=== PATIENT | male | born 1990 | race Caucasian/White ===

== ENCOUNTER 2018-04-01 06:23 | Emergency (ER) | payer SELFPAY ==
[2018-04-01 07:21] LABS: Absolute Monocytes 0.9 K/uL (0.1-1.3); Absolute Neutrophil 3.5 K/uL (1.8-8.0); Basophils % 0.7 % (0-1.3); Eosinophils % 1.7 % (0-4.4); Hematocrit 49.2 % (39.6-49.0); Lymphocytes % 39.4 % (15.3-44.8); MPV 8.4 fL (7.6-11.3); Monocytes % 11.3 % (3.3-12.3); RBC Red Blood Cell Count 5.81 M/uL (4.33-5.43)
[2018-04-01 07:29] LABS: Barbiturates NEGATIVE (NEGATIVE); Benzodiazepines NEGATIVE (NEGATIVE); Cocaine NEGATIVE (NEGATIVE); METHAMPHETAM NEGATIVE (NEGATIVE); Methadone NEGATIVE (NEGATIVE); Opiates NEGATIVE (NEGATIVE); Phencyclidine NEGATIVE (NEGATIVE); THC Cannibis NEGATIVE (NEGATIVE)
[2018-04-01] MEDS ORDERED: NA CHLORIDE 0.9% 1,000 ML ONE (07:44)
[2018-04-01 08:21] LABS: Urine Blood NEGATIVE (NEG); Urine Glucose NEGATIVE (NEG); Urine Protein NEGATIVE (NEG); Urine pH 5.5 (5.0-7.0)
[2018-04-01 08:26] LABS: BUN Blood Urea Nitrogen 14 mg/dL (7-18); Bicarbonate 26 mmol/L (21-32); Glucose Level 90 mg/dL (74-106); Potassium 3.8 mmol/L (3.5-5.1); Sodium Level 140 mmol/L (136-145)
--- NOTE | 2018-04-01 08:26 | EKG ---
Test Date: 2018-04-01 Test Time: 06:51:07 Commercial Baking Teacher: FRANKLIN MEASUREMENT RESULTS: Intervals: Rate: 90 LA: 156 QRSD: 88 QT: 364 QTc: 445 [place]: P: 67 LA: 156 QRS: 34 T: 52 INTERPRETIVE STATEMENTS: Normal sinus rhythm Normal ECG No previous ECG available for comparison Electronically Signed On 04-01-18 08:26:15 HEAD BONE GRINDER by Bong Rincon
--- NOTE | 2018-04-01 09:31 | ER ---
Nurse's Notes [facility] Name: Siddhartha Mishra Age: 27 yrs Sex: Male : 1990 Arrival Date: 04/01/2018 Time: 06:26 Bed 7 Private MD: Diagnosis: Near-syncope Presentation: 04/01 06:37 Presenting complaint: Patient states: "I was leaving work and I felt like my vision was tl2 going out and I was about to pass out but didn't. I still feel weird and like there is a pressure behind my eyes.". Transition of care: patient was not received from another setting of care. Onset of symptoms was April 01, 2018 at 06:00. Risk Assessment: Do you want to hurt yourself or someone else? Patient reports no desire to harm self or others. Initial Sepsis Screen: Does the patient meet any 2 criteria? No. Patient's initial sepsis screen is negative. Does the patient have a suspected source of infection? No. Patient's initial sepsis screen is negative. Care prior to arrival: None. 06:37 Method Of Arrival: Ambulatory tl2 06:37 Acuity: RAFAELA 3 tl2 Triage Assessment: 06:39 General: Appears in no apparent distress. uncomfortable, Behavior is calm, cooperative, tl2 appropriate for age. Pain: Denies pain. Neuro: Level of Consciousness is awake, alert, obeys commands, Oriented to person, place, time, situation, Reports weakness "feels like he can't focus". Cardiovascular: Denies chest pain. Respiratory: Airway is patent Respiratory effort is even, unlabored, Respiratory pattern is regular, symmetrical. GI: No signs and/or symptoms were reported involving the gastrointestinal system. : No signs and/or symptoms were reported regarding the genitourinary system. Derm: Skin is pink, warm \\T\\ dry. Historical: - Allergies: 06:39 No Known Allergies; tl2 - Home Meds: 06:39 None [Active]; tl2 - PMHx: 06:39 born with one kidney; Hypertension; stomach ulcers; tl2 - PSHx: 06:39 None; tl2 - Immunization history:: Adult Immunizations up to date. - Social history:: Smoking status: Patient uses tobacco products, smokes one-half pack cigarettes per day. - Ebola Screening: : No symptoms or risks identified at this time. Screenin:41 Abuse screen: Denies threats or abuse. Nutritional screening: No deficits noted. tl2 Tuberculosis screening: No symptoms or risk factors identified. Fall Risk None identified. Assessment: 07:49 Reassessment: Patient appears in no apparent distress at this time. Patient and/or sg family updated on plan of care and expected duration. Pain level reassessed. Patient is alert, oriented x 3, equal unlabored respirations, skin warm/dry/pink. Patient states symptoms have not improved. Vital Signs: 06:33 BP 149 / 92; Pulse 96; Resp 18; Temp 98.5(O); Pulse Ox 99% on R/A; Weight 92.08 kg; tl2 Height 5 ft. 11 in. (180.34 cm); Pain 0/10; 06:36 BP 138 / 88 Supine; Pulse 89; lp1 06:38 BP 151 / 97 Sitting; Pulse 99; lp1 06:40 BP 155 / 88 Standing; Pulse 92; lp1 07:48 BP 131 / 90; Pulse 85 MON; Resp 17 S; Pulse Ox 100% on R/A; Pain 0/10; sg 06:33 Body Mass Index 28.31 (92.08 kg, 180.34 cm) tl2 Visual Acuity: 09:22 Left Eye Visual acuity 20/25, Pupil size 4 mm, Normal, Reactive To Accomodation; Right sg Eye Visual acuity 20/25, Pupil size 4 mm, Normal, Reactive To Accomodation; Both Eyes Visual acuity 20/20; Without Lenses; ED Course: 06:26 Patient arrived in ED. es 06:31 Lin Miller FNP-C [facility]. kb 06:31 Robel Corley MD is Attending Physician. kb 06:38 Triage completed. tl2 06:39 Arm band placed on right wrist. tl2 06:[address] vm2 06:41 Patient has correct armband on for positive identification. Bed in low position. Call tl2 light in reach. Side rails up X 1. 06:41 EKG done. tl2 06:47 CT completed. Patient tolerated procedure well. Patient moved back from CT. vm2 06:50 CT Head Brain wo Cont In Process Unspecified. EDMS 06:55 Inserted saline lock: 20 gauge in left antecubital area, using aseptic technique. Blood lp1 collected. 07:06 Ted Win, RN is Primary Nurse. 10:13 No provider procedures requiring assistance completed. IV discontinued, intact, ss bleeding controlled, No redness/swelling at site. Pressure dressing applied. Administered Medications: 07:40 Drug: NS 0.9% 1000 ml Route: IV; Rate: 1000 ml; Site: left antecubital; sg 09:00 Follow up: Response: No adverse reaction; IV Status: Completed infusion; IV Intake: tw2 1000ml Intake: 09:00 IV: 1000ml; Total: 1000ml. tw2 Outcome: 09:30 Discharge ordered by . kb 10:13 Discharged to home ambulatory. ss 10:13 Condition: good 10:13 Discharge instructions given to patient, Instructed on discharge instructions, follow up and referral plans. Demonstrated understanding of instructions, follow-up care. 10:14 Patient left the ED. ss Signatures: Dispatcher [employer] EDLin Haddad, KINDERGARTEN TEACHER-C KINDERGARTEN TEACHER-CkTed Jane, RN RN Anisha Morales Shelby RN RN Li Fisher RN RN lp1 Bonnie Wilhelm RN RN tw2 Genesis Herndon RN RN tl2 Tanya Summers [facility] Corrections: (The following items were deleted from the chart) 06:45 06:39 BP 149 / 92; Pulse 96bpm; Resp 18bpm; Pulse Ox 99% RA; Temp 98.5F Oral; 92.08 kg; tl2 Height 5 ft. 11 in.; BMI: 28.3; Pain 0/10; tl2
--- NOTE | 2018-04-01 09:31 | EDPHYS ---
Physician Documentation [facility] Name: Siddhartha Mishra Age: 27 yrs Sex: Male : 1990 Arrival Date: 04/01/2018 Time: 06:26 Bed 7 Private MD: ED Physician Robel Corley HPI: 04/01 06:38 This 27 yrs old Male presents to ER via Ambulatory with complaints of Near kb Syncope, Doesn't Feel Right. 06:38 The patient has experienced near-syncope, felt faint. Onset: The symptoms/episode kb began/occurred just prior to arrival. Duration: This was a single episode. Context: occurred at work, occurred while the patient was standing, Just prior to the episode the patient experienced no apparent symptoms. Associated injury: The patient did not suffer any apparent associated injury. Associated signs and symptoms: Pertinent positives: lightheadedness, "unable to focus". Current symptoms: Currently, the patient is not experiencing any symptoms, the patient feels back to baseline, no decreased level of consciousness, no confusion, no dysphasia, no headache, no paralysis, no visual changes. The patient has not experienced similar symptoms in the past. The patient has not recently seen a physician. 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 States he just felt unfocused. He no longer feels like he is going to pass out, but still feels "weird." Reports he recently had food poisoning. . Historical: - Allergies: 06:39 No Known Allergies; tl2 - Home Meds: 06:39 None [Active]; tl2 - PMHx: 06:39 born with one kidney; Hypertension; stomach ulcers; tl2 - PSHx: 06:39 None; tl2 - Immunization history:: Adult Immunizations up to date. - Social history:: Smoking status: Patient uses tobacco products, smokes one-half pack cigarettes per day. - Ebola Screening: : No symptoms or risks identified at this time. ROS: 06:45 Constitutional: Negative for fever, chills, and weight loss, ENT: Negative for injury, kb pain, and discharge, Neck: Negative for injury, pain, and swelling, Cardiovascular: Negative for chest pain, palpitations, and edema, Respiratory: Negative for shortness of breath, cough, wheezing, and pleuritic chest pain, Abdomen/GI: Negative for abdominal pain, nausea, vomiting, diarrhea, and constipation, Back: Negative for injury and pain, MS/Extremity: Negative for injury and deformity, Skin: Negative for injury, rash, and discoloration. 06:45 Neuro: Positive for near syncope. Exam: 06:38 Constitutional: This is a well developed, well nourished patient who is awake, alert, kb and in no acute distress. Head/Face: Normocephalic, atraumatic. ENT: Nares patent. No nasal discharge, no septal abnormalities noted. Tympanic membranes are normal and external auditory canals are clear. Oropharynx with no redness, swelling, or masses, exudates, or evidence of obstruction, uvula midline. Mucous membranes moist. Neck: Trachea midline, no thyromegaly or masses palpated, and no cervical lymphadenopathy. Supple, full range of motion without nuchal rigidity, or vertebral point tenderness. No Meningismus. Chest/axilla: Normal chest wall appearance and motion. Nontender with no deformity. No lesions are appreciated. Cardiovascular: Regular rate and rhythm with a normal S1 and S2. No gallops, murmurs, or rubs. Normal PMI, no JVD. No pulse deficits. Respiratory: Lungs have equal breath sounds bilaterally, clear to auscultation and percussion. No rales, rhonchi or wheezes noted. No increased work of breathing, no retractions or nasal flaring. Abdomen/GI: Soft, non-tender, with normal bowel sounds. No distension or tympany. No guarding or rebound. No evidence of tenderness throughout. Skin: Warm, dry with normal turgor. Normal color with no rashes, no lesions, and no evidence of cellulitis. MS/ Extremity: Pulses equal, no cyanosis. Neurovascular intact. Full, normal range of motion. Neuro: Awake and alert, GCS 15, oriented to person, place, time, and situation. Cranial nerves II-XII grossly intact. Motor strength 5/5 in all extremities. Sensory grossly intact. Cerebellar exam normal. Normal gait. Vital Signs: 06:33 BP 149 / 92; Pulse 96; Resp 18; Temp 98.5(O); Pulse Ox 99% on R/A; Weight 92.08 kg; tl2 Height 5 ft. 11 in. (180.34 cm); Pain 0/10; 06:36 BP 138 / 88 Supine; Pulse 89; lp1 06:38 BP 151 / 97 Sitting; Pulse 99; lp1 06:40 BP 155 / 88 Standing; Pulse 92; lp1 07:48 BP 131 / 90; Pulse 85 MON; Resp 17 S; Pulse Ox 100% on R/A; Pain 0/10; sg 06:33 Body Mass Index 28.31 (92.08 kg, 180.34 cm) tl2 Visual Acuity: 09:22 Left Eye Visual acuity 20/25, Pupil size 4 mm, Normal, Reactive To Accomodation; Right sg Eye Visual acuity 20/25, Pupil size 4 mm, Normal, Reactive To Accomodation; Both Eyes Visual acuity 20/20; Without Lenses; MDM: 06:31 Patient medically screened. kb 06:38 Data reviewed: vital signs, nurses notes. Data interpreted: Pulse oximetry: on room air kb is 100 %. Interpretation: normal. 09:24 Counseling: I had a detailed discussion with the patient and/or guardian regarding: the kb historical points, exam findings, and any diagnostic results supporting the discharge/admit diagnosis, lab results, radiology results, the need for outpatient follow up, a family practitioner, a neurologist, to return to the emergency department if symptoms worsen or persist or if there are any questions or concerns that arise at home. 09:27 ED course: Pt feeling better, symptoms resolved. kb 04/01 06:37 Order name: CBC with Diff; Complete Time: 07:25 kb 04/01 06:37 Order name: Basic Metabolic Panel; Complete Time: 08:33 kb 04/01 06:37 Order name: CT Head Brain wo Cont; Complete Time: 10:03 kb 04/01 06:38 Order name: UDS; Complete Time: 07:44 kb 04/01 07:13 Order name: Urine Dipstick--Ancillary (enter results); Complete Time: 08:24 eb 04/01 06:37 Order name: Orthostatics; Complete Time: 06:43 kb 04/01 06:37 Order name: EKG; Complete Time: 06:38 kb 04/01 06:37 Order name: EKG - Nurse/Tech; Complete Time: 06:50 kb 04/01 06:37 Order name: IV Start; Complete Time: 06:55 kb 04/01 06:38 Order name: Urine Dipstick-Ancillary (obtain specimen); Complete Time: 07:11 kb 04/01 08:58 Order name: Visual Acuity; Complete Time: 09:34 kb Administered Medications: 07:40 Drug: NS 0.9% 1000 ml Route: IV; Rate: 1000 ml; Site: left antecubital; 09:00 Follow up: Response: No adverse reaction; IV Status: Completed infusion; IV Intake: tw2 1000ml Disposition: 04/01/18 09:30 Discharged to Home. Impression: Near-syncope. - Condition is Stable. - Discharge Instructions: Near-Syncope, [id number]. - Medication Reconciliation Form, Thank You Letter, Antibiotic Education, Prescription Opioid Use form. - Follow up: Emergency Department; When: As needed; Reason: Worsening of condition. Follow up: Private Physician; When: 2 - 3 days; Reason: Recheck today's complaints, Continuance of care, Re-evaluation by your physician. Addendum: 04/03/2018 07:10 Co-signature as Attending Physician, Robel Corley MD I agree with the assessment and k dr plan of care. Signatures: Dispatcher [employer] EDNY Lin Miller, EARLY EDUCATION TEACHER-C EARLY EDUCATION TEACHER-CkTed Jane RN RN sg Rittger, Kevin, MD MD [facility] Deloris Brown RN RN Geneiss Herndon RN RN tl2 Bonnie Wilhelm RN tw2 Corrections: (The following items were deleted from the chart) 04/01 10:14 09:30 04/01/2018 09:30 Discharged to Home. Impression: Near-syncope. Condition is ss Stable. Forms are Medication Reconciliation Form, Thank You Letter, Antibiotic Education, Prescription Opioid Use. Follow up: Emergency Department; When: As needed; Reason: Worsening of condition. Follow up: Private Physician; When: 2 - 3 days; Reason: Recheck today's complaints, Continuance of care, Re-evaluation by your physician. kb
--- NOTE | 2018-04-01 09:57 | RAD REPORT ---
EXAM DESCRIPTION: CT - Head Brain Wo Cont - 04/01/2018 6:50 am CLINICAL HISTORY: Syncope, weakness A preliminary report was provided at the time of the study and reviewed prior to final report. COMPARISON: None. TECHNIQUE: Axial 5 mm thick images of the head were obtained without IV contrast. All CT scans are performed using dose optimization technique as appropriate and may include automated exposure control or mA/KV adjustment according to patient size. FINDINGS: No intracranial hemorrhage, mass, edema or shift of mid-line structures. No acute infarcti on changes seen. No abnormal extra-axial fluid collections. Ventricles are normal. Mastoid air cells and visualized portions of the paranasal sinuses are clear. No acute bony findings. IMPRESSION: Negative non-contrast CT head examination.
== END 2018-04-01 10:14 | disposition home or self-care (01) ==
LOC: ER 06:23
DX: R55 Syncope and collapse (principal); F17.210 Nicotine dependence, cigarettes, uncomplicated; Q60.0 Renal agenesis, unilateral
CPT/HCPCS: 36415; 70450; 80048; 80307; 81003; 85025; 93005; 96360; 99284; J7030